=== PATIENT | male | born 1985 | race Caucasian/White ===

== ENCOUNTER 2021-04-23 13:56 | Emergency (ER) | payer OTHER, SELFPAY ==
[2021-04-23 14:13] VITALS: BP 128/77; PULSE 67; RESP 20; TEMP 36.6; O2SAT 98
--- NOTE | 2021-04-23 14:16 | ED.GENADULT ---
HPI - General Adult General Chief complaint: Skin/Abscess/Foreign Body Stated complaint: possible staff Source: patient Mode of arrival: ambulatory Limitations: no limitations History of Present Illness HPI narrative: Celio is a 35M with a PMH of tobacco abuse and distant methamphetamine use that presented to the ED with itching, tenderness and erythema on his upper back. It has been getting worse for a few days. No fevers, chills, nausea, or vomiting. Related Data Allergies Allergy/AdvReac Type Severity Reaction Status Date / Time No Known Allergies Allergy Verified 04/23/21 14:26 Review of Systems Constitutional: Constitutional: Reports no additional constitutional complaints Eyes: Eyes: Reports no additional eye complaints ENT: Reports system reviewed and no additional complaints, except as documented Cardiovascular: Cardiovascular: Reports no additional cardiovascular complaints Respiratory: Respiratory: Reports no additional respiratory complaints Gastrointestinal: Gastrointestinal: Reports no additional gastrointestinal complaints Genitourinary: Genitourinary: Reports no additional male genitourinary complaints Musculoskeletal: Musculoskeletal: Reports no additional musculoskeletal complaints Integumentary/Breasts: Skin/Breast: Reports as per HPI Neurologic: Reports system reviewed and no additional complaints, except as documented Psychiatric: Psychiatric: Reports no additional psychiatric complaints Endocrine: Endocrine: Reports no additional endocrine complaints Hematologic/Lymphatic: Hematologic/Lymphatic: Reports no additional hematologic/lymphatic complaints Allergic/Immunologic: Allergic/Immunologic: Reports no additional allergic/immunologic complaints [facility] Social History Social History Gender identity (if verbalized by the patient): Male Exam Const: General: no acute distress and alert Orientation/consciousness: patient oriented x3 Limitations: No altered mental status HENMT: Head: normal to inspection Other: normocephalic, atraumatic Eyes: Conjunctivae: conjunctivae normal Pupils: Equal, round and reactive pupils present Neck: Neck: normal visual inspection Chest: Chest palpation & inspection: normal inspection of the chest Resp: Effort & Inspection: normal respiratory effort Auscultation: clear to auscultation bilaterally Cardio: Rate: regular rate Rhythm: regular rhythm GI: Inspection: non-distended GI Palp: Yes Soft to palpation, No Tenderness to palpation present (GI) and No Guarding due to palpation present (GI) Skin: Other: Two linear abrasions on the upper back about 3x1cm with surrounding warmth and erythema. Neuro: General: patient oriented x3, moves all extremities, no focal motor deficits and CN's II-XI intact bilaterally Extrem: General: normal to inspection Psych: Mental Status: mental status grossly normal Course Vital Signs Vital signs: Vital Signs Temperature 97.8 F 04/23/21 14:13 Pulse Rate 67 04/23/21 14:13 Respiratory Rate 20 04/23/21 14:13 Blood Pressure 128/77 04/23/21 14:13 Pulse Oximetry 98 04/23/21 14:13 Temperature 97.8 F 04/23/21 14:13 Pulse Rate 67 04/23/21 14:13 Respiratory Rate 04/23/21 14:13 Blood Pressure 128/77 04/23/21 14:13 Pulse Oximetry 98 04/23/21 14:13 Medical Decision Making Vital Signs Vital Signs: Vital Signs Temperature 97.8 F 04/23/21 14:13 Pulse Rate 67 04/23/21 14:13 Respiratory Rate 04/23/21 14:13 Blood Pressure 128/77 04/23/21 14:13 Pulse Oximetry 98 04/23/21 14:13 Temperature 97.8 F 04/23/21 14:13 Pulse Rate 67 04/23/21 14:13 Respiratory Rate 04/23/21 14:13 Blood Pressure 128/77 04/23/21 14:13 Pulse Oximetry 98 04/23/21 14:13 Discharge Plan Discharge Clinical Impression: Cellulitis Patient Disposition: Home, Self-Care Condition: Stable Instruct
== END 2021-04-23 14:28 | disposition home or self-care (01) ==
PROVIDERS: Emergency Provider Family Medicine
DX: L03.90 Cellulitis, unspecified (principal)
CPT/HCPCS: 99283

== ENCOUNTER 2023-02-04 10:34 | Emergency (ER) | payer OTHER, SELFPAY ==
[2023-02-04 10:34] VITALS: BP 107/75; PULSE 87; RESP 20; TEMP 36.9; O2SAT 94
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
--- NOTE | 2023-02-04 11:25 | PC.NURSE ---
food tray provided . pt thankful.
--- NOTE | 2023-02-04 13:20 | PC.NURSE ---
1130 food tray provided. scrub top and air twist operator socks provided for pt. declined behavioral health eval offered per dr caballero. 1200 pt being discharged. allowing pt to finish meal provided. 1210 pt ate 100% food tray provided. 1215 pt sleeping. left undisturbed. unknown when last meal or where pt sleeping. 1230 lights out for comfort. 1300 pt sleeping. resp even unlabored. 1315 pt remains sleeping, head of bed lowered for comfort, warm blanket applied. 1345 pt sleeping
--- NOTE | 2023-02-04 15:26 | PC.NURSE ---
1430 pt sleeping. resp even unlabored. 1530 pt sleeping.
--- NOTE | 2023-02-04 16:28 | PC.NURSE ---
1630 awakened pt. explained allowed to sleep throughout the day and keep off feet for rest . providing supper tray, then will need to depart facility. pt thankful and appreciative for resting, sleep. provided socks and scrub top to wear.
--- NOTE | 2023-02-04 17:03 | PC.NURSE ---
1700 pt ate 95% provided meal. departed facility ambulatory . put on paper scrub top , refused to put on socks. pt states why do you think my feet are callused ,i walk around alot with no shoes on .
== END 2023-02-04 12:00 | disposition home or self-care (01) ==
PROVIDERS: Emergency Provider Emergency Medicine
DX: L84 Corns and callosities (principal); F30.9 Manic episode, unspecified; Z59.00 Homelessness unspecified
CPT/HCPCS: 99281

== ENCOUNTER 2023-04-18 17:36 | Emergency (ER) | payer OTHER, SELFPAY ==
[2023-04-18 17:36] VITALS: BP 125/70; PULSE 101; RESP 20; TEMP 37.7; O2SAT 100
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
--- NOTE | 2023-04-18 18:19 | PC.NURSE ---
PT REPORTS HE IS LEAVING, REFUSES ALL TESTING, IS AWARE CONDITION MAY DETERIORATE UP TO AND INCLUDING . PT REFUSED TO SIGN AMA FORM.
== END 2023-04-18 18:18 | disposition left against medical advice (07) ==
PROVIDERS: Emergency Provider Emergency Medicine
DX: R51.9 Headache, unspecified (principal); M25.512 Pain in left shoulder; Y04.2XXA Assault by strike against or bumped into by another person, initial encounter
CPT/HCPCS: 99282